=== PATIENT | female | born 1990 | race Caucasian/White ===

== ENCOUNTER 2016-07-29 10:30 | Emergency (ER) ==
[2016-07-29 10:34] VITALS: BP 129/80
[2016-07-29] MEDS ORDERED: DECADRON IM ONE (11:53)
--- NOTE | 2016-07-29 11:57 | PROVIDER DOCUMENTATION ---
HPI-Respiratory General - General Chief Complaint: Flu Symptoms Stated Complaint: fever Time Seen by Provider: 07/29/16 11:32 Source: patient Allergies/Adverse Reactions: Patient Allergies Allergy/AdvReac Type Severity Reaction Status Date / Time cefaclor [From Ceclor] Allergy Intermediate SWELLING Verified 07/29/16 11:09 ketorolac tromethamine * Allergy SWELLING Verified 07/29/16 11:09 [From Toradol] tramadol HCl * [From Ultram] Allergy RASH Verified 07/29/16 11:09 - History of Present Illness-Resp Nature of Presenting Problem: 25 y/o WF c/o cough, congestion, fevers, body aches x 3 days. Tried robitussin without relief. Denies sob or wheezing. Denies sick contacts. Cough is non- productive Review of Systems - Adult - REVIEW OF SYSTEMS - ADULT Constitutional: reports: see HPI, chills, fever, fatique Eyes: reports: no symptoms reported. denies: blurred vision, double vision, eye pain Ears, Nose, Mouth & Throat: reports: see HPI, sinus problem. denies: ear pain, nose pain, throat pain Cardiovascular: reports: no symptoms reported. denies: chest pain, palpitations Respiratory: reports: see HPI, cough. denies: shortness of breath, wheezing Gastrointestinal: reports: no symptoms reported. denies: abdominal pain, diarrhea, nausea, vomiting Genitourinary: reports: no symptoms reported. denies: dysuria, discharge, frequency, incontinence Musculoskeletal: reports: see HPI, muscle aches. denies: bone pain, back pain Integumentary: reports: no symptoms reported. denies: rash Neurological: reports: no symptoms reported. denies: headache/migraines Psychiatric: reports: no symptoms reported Endocrine: reports: no symptoms reported Hematologic/Lymphatic: reports: no symptoms reported Allergic/Immunologic: reports: no symptoms reported All Other Systems: Reviewed and Negative Past History - Adult - PAST MEDICAL HISTORY-ADULT Review of Records: reports: Old Records Reviewed, Nursing Assessment Review, Medications Reviewed, Social history reviewed & non-contributory. Major Childhood Illnesses: reports: denies history Cardiovascular: reports: HTN Respiratory: reports: denies history Gastrointestinal: reports: denies history Obstetrical/Gynecological: reports: other (ovarian cyst) Genitourinary: reports: denies history Musculoskeletal: reports: chronic pain Neurological: reports: CVA Endocrine/Immune: reports: other (hyperglycemia) Other Conditions: reports: psoriasis, skin disorder (Psoriasis ) Additional History: hypoglycemia - PRIOR SURGERIES/PROCEDURES Surgical/Procedure History: reports: , other - PRIOR HOSPITALIZATIONS Prior Hospitalizations: reports: none - IMMUNIZATION STATUS Childhood Immunizations: UTD Flu Vaccine: See Nurse Assessment - FAMILY HISTORY Family History: reviewed, not pertinent - SOCIAL HISTORY Smoking: denies Substance Use: none/never Alcohol Use Frequency: never Physical Exam-General - PHYSICAL EXAM-ADULT Initial Vital Signs Reviewed: Yes - CONSTITUTIONAL General Appearance: appears well, alert, no apparent distress - EYES Eyes: PERRL/EOMI, pink conjunctivae - HEAD, EARS, NOSE, MOUTH & THROAT HENMT: normocephalic/atraumatic, moist mucous membranes, normal ENT inspection, TMs normal, pharynx normal. negative: pharyngeal erythema, tonsillar exudate - NECK Neck: non-tender, full range of motion, supple, normal inspection. negative: lymphadenopathy - RESPIRATORY Respiratory: chest non-tender, lungs clear, normal breath sounds, no pleuratic chest pain, no respiratory distress, no accessory muscle use. negative: respiratory distress, decreased breath sounds, accessory muscle use, crackles, rales, rhonchi, wheezing - CARDIOVASCULAR Cardiovascular: normal peripheral pulses, regular rate, rhythm, no edema - MUSCULOSKELETAL Back Exam: normal inspection Extremity: normal range of motion, non-tender, normal gait Peripheral Pulses: radial (R): 2+, radial (L): 2+ - SKIN Integumentary: normal color, normal turgor, warm/dry, other (prosiratic rash, on ears, neck and upper/lower extremities) - NEUROLOGIC Neurologic: grossly normal, no motor/sensory deficits - PSYCHIATRIC Psych/Mental Status: normal mood/affect, normal thought content, normal thought process, oriented x 3 Progress - PLAN OF CARE/RESULTS Progress/Plan/Lab Results: Vital Signs Temp Pulse Resp BP Pulse Ox 07/29/16 10:32 97.7 F 75 18 129/80 100 cefaclor [From Ceclor] Allergy (Intermediate, Verified 07/29/16 11:09) SWELLING ketorolac tromethamine * [From Toradol] Allergy (Verified 07/29/16 11:09) SWELLING tramadol HCl * [From Ultram] Allergy (Verified 07/29/16 11:09) RASH No Home Medications 07/29/16 Orders Category Date Time Status ED: Urine Bedside ORDERED Care 07/29/16 11:37 Active DIRECT STREP Stat Lab 07/29/16 10:32 Completed INFLUENZA SCREEN A/B Stat Lab 07/29/16 10:32 Completed Dexamethasone [Decadron] Med 07/29/16 11:53 Discontinued 4 mg IM NOW ONE Departure - Departure Time of Disposition Order: 11:56 DIAGNOSIS: Viral URI with cough Disposition: HOME 01 Certified Medical Emergency: Emergent Condition: Stable Additional Instructions: ED Follow Up Instructions: You have been treated by a care provider in the Emergency Department. These instructions are being provided to you so you can have an understanding of how to care for yourself upon discharge. Upon discharge from the Emergency Department, you are responsible for making arrangements for follow-up care by a physician of your choice. Take all prescribed medications as directed. Return to the Emergency Department immediately for any new or worsening symptoms. You may call the Physician Referral phone number at [phone] to obtain a list of Physicians who are taking new patients. Prescriptions: D-Methorphan Hb/P-Epd HCl/Bpm [Bromfed Dm Cough Syrup] 5 ml PO Q6H PRN PRN #1 syrup PRN Reason: Cough Prednisone [Deltasone] 20 mg PO DIRECTED #12 tablet Attestation - Physician/ Mid-level Attestation Patient care was provided by Mid-level provider ([employer]/PA):: Yes Mid-level provider:: Marquita Jackson Mid-level documentation review:: The Mid-level provider documentation, treatment plan and medical decision making was reviewed by the physician who agrees with all treatment and medical decision making by the MLP.
== END 2016-07-29 12:09 | disposition home or self-care (01) ==
LOC: ED 10:30
DX: J06.9 Acute upper respiratory infection, unspecified (principal); R05 Cough; R09.81 Nasal congestion; R50.9 Fever, unspecified; M79.1 Myalgia; R53.83 Other fatigue; R21 Rash and other nonspecific skin eruption; I10 Essential (primary) hypertension; G89.29 Other chronic pain; Z86.73 Personal history of transient ischemic attack (TIA), and cerebral infarction without residual deficits; Z87.42 Personal history of other diseases of the female genital tract; Z87.2 Personal history of diseases of the skin and subcutaneous tissue
CPT/HCPCS: 81025; 87081; 87430; 87804; 96372; J1100